=== PATIENT | female | born 1935 | race Caucasian/White ===

== ENCOUNTER → 2018-11-09 | Outpatient (CLI) | payer MEDICARE, BC ==
--- NOTE | 2018-11-09 09:48 | XR ---
EXAMINATION TYPE: XR chest 2V DATE OF EXAM: 11/09/2018 COMPARISON: NONE HISTORY: Shortness of breath TECHNIQUE: Frontal and lateral views of the chest are obtained. FINDINGS: Scattered senescent parenchymal changes noted. Hyperinflation compatible with COPD. No evidence for infiltrate. No evidence for atelectasis. Heart size is stable. Mediastinal structures are stable and grossly unremarkable. No evidence for hilar prominence. Degenerative changes dorsal spine. IMPRESSION: 1. No evidence for acute pulmonary disease.
== END | disposition home or self-care (01) ==
LOC: RADXRMAIN 08:52
PROVIDERS: ATTEND Internal Medicine
DX: R05 Cough (principal)
CPT/HCPCS: 71046

== ENCOUNTER 2019-09-16 23:26 | Observation (INO) | payer MEDICARE, BC ==
[2019-09-17 00:29] LABS: Anisocytosis Slight; Basophils % (A) 0 %; Eosinophils % (A) 0 %; HCT 28.4 % (34.0-46.0); HGB 8.8 gm/dL (11.4-16.0); Hypochromasia Slight; Lymphocytes # (A) 2.1 k/uL (1.0-4.8); Lymphocytes % (A) 30 %; MCH 26.8 pg (25.0-35.0); MCHC 30.9 g/dL (31.0-37.0); MCV 86.6 fL (80.0-100.0); Mean Platelet Volume 12.7; Monocytes # (A) 0.3 k/uL (0-1.0); Monocytes % (A) 5 %; Neutrophils # (A) 4.3 k/uL (1.3-7.7); Neutrophils % (A) 60 %; Platelet Count 57 k/uL (150-450); Poikilocytosis Slight; RBC 3.28 m/uL (3.80-5.40); RDW 17.6 % (11.5-15.5); WBC 7.1 k/uL (3.8-10.6)
[2019-09-17 00:33] LABS: Albumin 3.1 g/dL (3.5-5.0); Calcium 8.5 mg/dL (8.4-10.2); Magnesium 1.8 mg/dL (1.6-2.3); Potassium 3.2 mmol/L (3.5-5.1); Total Bilirubin 0.6 mg/dL (0.2-1.3); Total Protein 5.9 g/dL (6.3-8.2)
--- NOTE | 2019-09-17 00:36 | ED ---
Recheck HPI - General Chief Complaint: Recheck/Abnormal Lab/Rx Stated Complaint: abnormal labs Time Seen by Provider: 09/16/19 23:28 Source: EMS Mode of arrival: EMS Limitations: no limitations - History of Present Illness Initial Comments: Ariane is an 84-year-old female presents to ER today from [facility] for evaluation of newly identified thrombocytopenia and anemia. Patient is currently been undergoing evaluation of a lung mass and recently was diagnosed with what she says is a uncurable lung disease however staff at the nursing facility reported that she has terminal lung cancer. Patient reports that over the past week she's noticed bruising of her legs and has had generalized weakness. Physician at her facility ordered labs and CBC resulted with new onset of anemia and thrombocytopenia of unknown etiology. Patient is also noted to be per family hypokalemic with potassium of only 2.9 earlier. At that time patient was transferred to our facility for further evaluation. Patient does admit to feeling pain at her recent biopsy site as well as generalized malaise. Review of Systems ROS Statement: Those systems with pertinent positive or pertinent negative responses have been documented in the HPI. ROS Other: All systems not noted in ROS Statement are negative. Past Medical History Additional Past Medical History / Comment(s): afib, lung cx. History of Any Multi-Drug Resistant Organisms: None Reported Additional Past Surgical History / Comment(s): pacemaker Past Psychological History: No Psychological Hx Reported Smoking Status: Never smoker Past Alcohol Use History: None Reported Past Drug Use History: None Reported General Exam - General Exam Comments Initial Comments: Physical Exam GENERAL: Elderly chronically ill-appearing female HENT: Normocephalic, Atraumatic. EYES: PERRL, EOMI Conjunctival pallor PULMONARY: Unlabored respirations. Crackles on right CARDIOVASCULAR: There is a regular rate and rhythm without any murmurs gallops or rubs. ABDOMEN: Soft and nontender with normal bowel sounds. SKIN: Petechia thighs, bruising on bilateral calves Senile purpura noted on bilateral upper extremities Patient is pale : Deferred NEUROLOGIC: Patient is alert and oriented x3. Moving all extremities spontaneously MUSCULOSKELETAL: Normal extremities with adequate strength and full range of motion. No lower extremity swelling or edema. No calf tenderness. PSYCHIATRIC: Appropriate situational depression Limitations: no limitations Course Vital Signs 09/16/19 23:35 Temperature 98.6 F Pulse Rate 66 Respiratory 18 Rate Blood Pressure 147/75 O2 Sat by Pulse 96 Oximetry Medical Decision Making - Medical Decision Making The patient was seen and evaluated history is obtained from the patient and review of medical record History and physical exam concerning for anemia Nuance of thrombus cytopenia Repeat labs confirmed anemia with thrombocytopenia Patient will be admitted for further evaluation by oncology - Lab Data Result diagrams: 09/17/19 00:03 09/17/19 00:03 Lab Results 09/17/19 09/17/19 09/17/19 Range/Units 00:01 00:03 00:03 WBC 7.1 (3.8-10.6) k/uL RBC 3.28 L (3.80-5.40) m/uL Hgb 8.8 L (11.4-16.0) gm/dL Hct 28.4 L (34.0-46.0) % MCV 86.6 (80.0-100.0) fL MCH 26.8 (25.0-35.0) pg MCHC 30.9 L (31.0-37.0) g/dL RDW 17.6 H (11.5-15.5) % Plt Count 57 L (150-450) k/uL Neutrophils % 60 % Lymphocytes % 30 % Monocytes % 5 % Eosinophils % 0 % Basophils % 0 % Neutrophils # 4.3 (1.3-7.7) k/uL Lymphocytes # 2.1 (1.0-4.8) k/uL Monocytes # 0.3 (0-1.0) k/uL Eosinophils # 0.0 (0-0.7) k/uL Basophils # 0.0 (0-0.2) k/uL Manual Slide Review Performed Large Platelets Present Polychromasia Present Hypochromasia Slight Poikilocytosis Slight Anisocytosis Slight Sodium (137-145) mmol/L Potassium (3.5-5.1) mmol/L Chloride (98-107) mmol/L Carbon Dioxide (22-30) mmol/L Anion Gap mmol/L BUN (7-17) mg/dL Creatinine (0.52-1.04) mg/dL Est GFR (CKD-EPI)AfAm (>60 ml/min/1.73 sqM) Est GFR (CKD-EPI)NonAf (>60 ml/min/1.73 sqM) Glucose (74-99) mg/dL Calcium (8.4-10.2) mg/dL Magnesium (1.6-2.3) mg/dL Total Bilirubin (0.2-1.3) mg/dL AST (14-36) U/L ALT (4-34) U/L Alkaline Phosphatase (38-126) U/L Total Protein (6.3-8.2) g/dL Albumin (3.5-5.0) g/dL Blood Type O Positive Blood Type Confirm O Positive Blood Type Recheck No Previous Record Bld Type Recheck Status CABO Indicated Antibody Screen NEGATIVE Spec Expiration Date 09/20/2019 - 230209/17/19 Range/Units 00:03 WBC (3.8-10.6) k/uL RBC (3.80-5.40) m/uL Hgb (11.4-16.0) gm/dL Hct (34.0-46.0) % MCV (80.0-100.0) fL MCH (25.0-35.0) pg MCHC (31.0-37.0) g/dL RDW (11.5-15.5) % Plt Count (150-450) k/uL Neutrophils % % Lymphocytes % % Monocytes % % Eosinophils % % Basophils % % Neutrophils # (1.3-7.7) k/uL Lymphocytes # (1.0-4.8) k/uL Monocytes # (0-1.0) k/uL Eosinophils # (0-0.7) k/uL Basophils # (0-0.2) k/uL Manual Slide Review Large Platelets Polychromasia Hypochromasia Poikilocytosis Anisocytosis Sodium 141 (137-145) mmol/L Potassium 3.2 L (3.5-5.1) mmol/L Chloride 106 (98-107) mmol/L Carbon Dioxide 27 (22-30) mmol/L Anion Gap 8 mmol/L BUN 31 H (7-17) mg/dL Creatinine 1.21 H (0.52-1.04) mg/dL Est GFR (CKD-EPI)AfAm 48 (>60 ml/min/1.73 sqM) Est GFR (CKD-EPI)NonAf 42 (>60 ml/min/1.73 sqM) Glucose 111 H (74-99) mg/dL Calcium 8.5 (8.4-10.2) mg/dL Magnesium 1.8 (1.6-2.3) mg/dL Total Bilirubin 0.6 (0.2-1.3) mg/dL AST 27 (14-36) U/L ALT 18 (4-34) U/L Alkaline Phosphatase 97 (38-126) U/L Total Protein 5.9 L (6.3-8.2) g/dL Albumin 3.1 L (3.5-5.0) g/dL Blood Type Blood Type Confirm Blood Type Recheck Bld Type Recheck Status Antibody Screen Spec Expiration Date Disposition Clinical Impression: Hypokalemia, Thrombocytopenia, Anemia Disposition: ADMITTED IP TO THIS [facility] Condition: Serious Is patient prescribed a controlled substance at d/c from ED?: No Referrals: David Cheng MD [Primary Care Provider] - 1-2 days
[2019-09-17 01:15] LABS: Large Platelets Present; Polychromasia Present
[2019-09-17] MEDS ORDERED: Potassium Replacement Protocol 1 EACH MISC MISCELLANE PRN (02:34)
[2019-09-17] MEDS ORDERED: NALOXONE 0.4 MG/ML 1 ML VIAL IV PRN (02:34)
[2019-09-17] MEDS: POTASSIUM CHLORIDE ER 20 MEQ TAB.ER PO SCH ×2 (03:46→04:49)
[2019-09-17 10:29] LABS: Partial Thromboplastin Time 23.5 sec (22.0-30.0); Prothrombin Time 19.8 sec (9.0-12.0)
[2019-09-17 16:06] LABS: Albumin 2.9 g/dL (3.5-5.0); Anisocytosis Slight; Basophils % (A) 0 %; Calcium 8.6 mg/dL (8.4-10.2); Eosinophils # (A) 0.1 k/uL (0-0.7); Eosinophils % (A) 1 %; HCT 28.9 % (34.0-46.0); HGB 9.1 gm/dL (11.4-16.0); Hypochromasia Slight; Lymphocytes # (A) 1.8 k/uL (1.0-4.8); Lymphocytes % (A) 28 %; MCH 27.5 pg (25.0-35.0); MCHC 31.4 g/dL (31.0-37.0); MCV 87.6 fL (80.0-100.0); Monocytes # (A) 0.2 k/uL (0-1.0); Monocytes % (A) 4 %; Neutrophils # (A) 4.2 k/uL (1.3-7.7); Neutrophils % (A) 65 %; Poikilocytosis Slight; Potassium 3.5 mmol/L (3.5-5.1); RDW 17.9 % (11.5-15.5); Total Bilirubin 0.7 mg/dL (0.2-1.3); Total Protein 5.7 g/dL (6.3-8.2); WBC 6.4 k/uL (3.8-10.6)
[2019-09-17 17:13] LABS: Platelet Count 68 k/uL (150-450)
[2019-09-17] MEDS ORDERED: NA PHOS,M-B/NA PHOS,DI-BA 133 ML ENEMA RECTAL PRN (18:20)
[2019-09-17] MEDS ORDERED: MAGNESIUM HYDROXIDE 2,400 MG/10 ML CUP PO PRN (18:20)
[2019-09-17] MEDS ORDERED: ACETAMINOPHEN TAB 325 MG TAB PO PRN (18:20)
[2019-09-17] MEDS ORDERED: BENZOCAINE 20% HEMORRHOIDAL OINT 28GM RECTAL PRN (18:20)
[2019-09-17] MEDS ORDERED: BISACODYL 10 MG SUPP RECTAL PRN (18:20)
[2019-09-17] MEDS ORDERED: ALPRAZolam 0.25 MG TAB PO PRN (18:22)
[2019-09-17] MEDS ORDERED: POTASSIUM CHLORIDE ER 20 MEQ TAB.ER PO SCH (18:30)
[2019-09-17 18:32] LABS: % Iron Saturation 2.19 (12.00-45.00)
--- NOTE | 2019-09-17 18:38 | XR ---
EXAMINATION TYPE: XR chest 1V portable DATE OF EXAM: 09/17/2019 COMPARISON: NONE HISTORY: 11/09/2018 TECHNIQUE: Single view FINDINGS: There is some airspace infiltrate and pleural fluid in the right lower lobe. Heart is enlar ged. There is a left axillary pacemaker. There is no heart failure. Left lung is clear. IMPRESSION: There is right lower lobe pneumonia and right pleural fluid that appears new compared to old exam. No heart failure seen.
--- NOTE | 2019-09-17 19:38 | P.CONS ---
History of Present Illness - Reason for Consult Consult date: 09/17/19 bicytopenia Requesting physician: Kayley Duarte - Chief Complaint abnormal lab - History of Present Illness Mrs. Ruth is a very pleasant 84-year-old female patient sent from [facility] that she was staying at for rehabilitation due to recent frequent hospitalizations. Recently had pneumonia, had lung biopsy, with a diagnosis of lung "disease". Patient and her both confirm that she was not diagnosed with cancer but, they could not remember the name of the disease. The specimen was sent to [facility] from [facility]. Patient denied any fevers, chills, illness other then the pneumonia, no unusual weight loss, shortness of breath, cough, difficulty breathing, ear nose or throat pain, acute changes in oral intake, abdominal pain, acute changes in bowel or bladder habits. She has never been told she has had low counts before.Patient feels well, is not sure why she is here. Review of Systems 14 point review of systems is negative except as stated in HPI Past Medical History Past Medical History: Atrial Fibrillation, Blood Disorder, Heart Failure, COPD, GERD/Reflux, Osteoarthritis (OA), Pneumonia, Renal Disease, Respiratory Disorder, Thyroid Disorder Additional Past Medical History / Comment(s): Newly identified thrombocytopenia and anemia, hypokalemia, recent diagnosis of "incurable lung disease" per pt, SOB with any exertion, interstitial lung disease, pulmonary HTN, arthritis bilateral knees, spinal stenosis/occasional low back pain, SSS with pacer, hypothyroid, IBS, DKD stage III, stress urine incontinence. History of Any Multi-Drug Resistant Organisms: None Reported Past Surgical History: Appendectomy, Cholecystectomy, Hysterectomy, Joint Replacement, Pacemaker, Tubal Ligation, Uterine Ablation Additional Past Surgical History / Comment(s): R lung surgery/bx with chest tube, colonoscopies, total R knee arthroplasty, D&Cs, bilateral cataract removals/lens implants. Past Anesthesia/Blood Transfusion Reactions: No Reported Reaction Additional Past Anesthesia/Blood Transfusion Reaction / Comm: Pt has received blood in past without reaction. Type of Cardiac Device: Permanent Pacemaker Device Placement Date:: 2015 Smoking Status: Never smoker - Past Family History Father Family Medical History: Cancer Additional Family Medical History / Comment(s): Father of stomach cancer. Mother Family Medical History: No Reported History Additional Family Medical History / Comment(s): Mother is . Medications and Allergies Home Medications Medication Instructions Recorded Confirmed Type Acetaminophen Tab [Tylenol] 650 mg PO Q6H PRN 09/17/19 09/17/19 History Aspirin 81 mg PO DAILY 09/17/19 09/17/19 History Atorvastatin [Lipitor] 10 mg PO HS 09/17/19 09/17/19 History Bisacodyl [Dulcolax] 10 mg RECTAL DAILY PRN 09/17/19 09/17/19 History Cholecalciferol [Vitamin D3 (25 1,000 unit PO DAILY 09/17/19 09/17/19 History Mcg = 1000 Iu)] Digoxin [Lanoxin] 125 mcg PO DAILY@0600 09/17/19 09/17/19 History Diltiazem HCl [Cardizem LA] 180 mg PO DAILY 09/17/19 09/17/19 History Furosemide [Lasix] 20 mg PO DAILY 09/17/19 09/17/19 History Levothyroxine Sodium [Levoxyl] 88 mcg PO DAILY@0600 09/17/19 09/17/19 History Losartan [Cozaar] 50 mg PO DAILY 09/17/19 09/17/19 History Magnesium Hydroxide [Milk of 2,400 mg PO DAILY PRN 09/17/19 09/17/19 History Magnesia] Metoprolol Tartrate [Lopressor] 50 mg PO BID 09/17/19 09/17/19 History Na Phos,M-B/Na Phos,Di-Ba [Fleet 133 ml RECTAL DAILY PRN 09/17/19 09/17/19 History Adult] Pantoprazole Sodium [Protonix] 40 mg PO DAILY@0600 09/17/19 09/17/19 History Phenyleph/Pramoxin/Glycr/W.pet 1 applic RECTAL QID PRN 09/17/19 09/17/19 History [Preparation H Cream] Potassium Chloride [Klor-Con 10] 10 meq PO DAILY@1700 09/17/19 09/17/19 History Potassium Chloride [Klor-Con 20] 20 meq PO DIRECTED 09/17/19 09/17/19 History Sertraline [Zoloft] 150 mg PO DAILY 09/17/19 09/17/19 History Umeclidinium Brm/Vilanterol Tr 1 puff INHALATION DAILY 09/17/19 09/17/19 History [Anoro Ellipta 62.5-25 Mcg INH] Warfarin [Coumadin] 2.5 mg PO DAILY@1700 09/17/19 09/17/19 History predniSONE [Deltasone] 20 mg PO DAILY 09/17/19 09/17/19 History Allergies Allergy/AdvReac Type Severity Reaction Status Date / Time codeine AdvReac Nausea/Dizz Verified 09/17/19 07:14 iness Physical Exam Vitals: Vital Signs Temp Pulse Pulse Resp BP BP Pulse Ox 09/17/19 17:45 97.6 F 87 17 178/72 96 09/17/19 13:00 98.2 F 79 16 150/72 93 L 09/17/19 08:32 97.5 F L 76 165/66 09/17/19 05:34 97.8 F 73 19 139/74 99 09/17/19 04:51 71 18 118/70 99 09/17/19 02:38 70 18 136/64 98 09/17/19 01:38 68 18 135/63 97 09/17/19 00:38 70 18 129/66 98 09/16/19 23:35 98.6 F 66 18 147/75 96 Intake and Output 09/17/19 09/17/19 09/17/19 06:59 14:59 22:59 Other: # Voids 1 Weight 90.718 kg 90.718 kg - Constitutional General appearance: cooperative, morbidly obese, no acute distress - EENT Eyes: anicteric sclerae, EOMI ENT: hearing grossly normal, normal oropharynx - Neck Neck: no lymphadenopathy - Respiratory Respiratory: bilateral: CTA - Cardiovascular Rhythm: regular Heart sounds: normal: S1, S2 Abnormal Heart Sounds: no systolic murmur, no diastolic murmur, no rub, no S3 Gallop, no S4 Gallop, no click, no other leg Peripheral Edema: bilateral: None - Gastrointestinal General gastrointestinal: no absent bowel sounds, no decreased bowel sounds, no distended, no hepatomegaly, no hyperactive bowel sounds, normal bowel sounds, no organomegaly, no rigid, no scaphoid, soft, no splenomegaly, no tenderness, no umbilical hernia, no ventral hernia - Integumentary Bruises noted on the bilateral lower extremities, petechiae on the shins Integumentary: pale - Neurologic Neurologic: CNII-XII intact - Musculoskeletal Musculoskeletal: generalized weakness - Psychiatric Psychiatric: A&O x's 3, appropriate affect, intact judgment & insight Results CBC & Chem 7: 09/17/19 15:32 09/17/19 15:32 Labs: Abnormal Lab Results - Last 24 Hours (Table) 09/17/19 09/17/19 09/17/19 Range/Units 00:03 00:03 09:23 RBC 3.28 L (3.80-5.40) m/uL Hgb 8.8 L (11.4-16.0) gm/dL Hct 28.4 L (34.0-46.0) % MCHC 30.9 L (31.0-37.0) g/dL RDW 17.6 H (11.5-15.5) % Plt Count 57 L (150-450) k/uL PT (9.0-12.0) sec INR (<1.2) Potassium 3.2 L (3.5-5.1) mmol/L BUN 31 H (7-17) mg/dL Creatinine 1.21 H (0.52-1.04) mg/dL Glucose 111 H (74-99) mg/dL Iron 7 L (50-170) ug/dL % Saturation 2.19 L (12.00-45.00) Lactate Dehydrogenase (313-618) U/L Total Protein 5.9 L (6.3-8.2) g/dL Total Protein (PEP) (6.2-8.2) g/dL Albumin 3.1 L (3.5-5.0) g/dL 09/17/19 09/17/19 09/17/19 Range/Units 09:23 09:23 09:23 RBC (3.80-5.40) m/uL Hgb (11.4-16.0) gm/dL Hct (34.0-46.0) % MCHC (31.0-37.0) g/dL RDW (11.5-15.5) % Plt Count (150-450) k/uL PT 19.8 H (9.0-12.0) sec INR 2.0 H (<1.2) Potassium (3.5-5.1) mmol/L BUN (7-17) mg/dL Creatinine (0.52-1.04) mg/dL Glucose (74-99) mg/dL Iron (50-170) ug/dL % Saturation (12.00-45.00) Lactate Dehydrogenase 1018 H (313-618) U/L Total Protein (6.3-8.2) g/dL Total Protein (PEP) 5.0 L (6.2-8.2) g/dL Albumin (3.5-5.0) g/dL 09/17/19 09/17/19 Range/Units 15:32 15:32 RBC 3.30 L (3.80-5.40) m/uL Hgb 9.1 L (11.4-16.0) gm/dL Hct 28.9 L (34.0-46.0) % MCHC (31.0-37.0) g/dL RDW 17.9 H (11.5-15.5) % Plt Count 68 L (150-450) k/uL PT (9.0-12.0) sec INR (<1.2) Potassium (3.5-5.1) mmol/L BUN 27 H (7-17) mg/dL Creatinine (0.52-1.04) mg/dL Glucose 108 H (74-99) mg/dL Iron (50-170) ug/dL % Saturation (12.00-45.00) Lactate Dehydrogenase (313-618) U/L Total Protein 5.7 L (6.3-8.2) g/dL Total Protein (PEP) (6.2-8.2) g/dL Albumin 2.9 L (3.5-5.0) g/dL Chest x-ray: report reviewed (right lower lobe pneumonia, pleural effusion) Assessment and Plan (1) Anemia Current Visit: Yes Status: Acute Priority: High Code(s): D64.9 - ANEMIA, UNSPECIFIED SNOMED Code(s): 708047048 (2) Thrombocytopenia Current Visit: Yes Status: Acute Priority: High Code(s): D69.6 - THROMBOCYTOPENIA, UNSPECIFIED SNOMED Code(s): 318779024 Plan: New onset for the patient. No need to for transfusion at this time. CBC daily and when necessary. Pancytopenia workup, hemolysis workup ordered. Patient is on Coumadin for atrial fibrillation, she states her last INR was therapeutic between 2 and 3. This is on hold due to concerns for acute bleeding and acute drop in hemoglobin.
--- NOTE | 2019-09-17 19:53 | HP ---
HISTORY AND PHYSICAL DATE OF SERVICE: 09/17/2019 CHIEF COMPLAINTS: Anemia, thrombocytopenia. HISTORY OF PRESENT ILLNESS: This 84-year-old woman with a past medical history of multiple medical problems, including atrial fibrillation, history of CHF, COPD, GERD, history of DJD, history of pneumonia, history of hypothyroidism, history of apparently incurable lung disease or malignancy, interstitial lung disease, pulmonary hypertension, history of appendectomy, history of cholecystectomy, being followed by Dr. Cheng in the [facility], was noted to have thrombocytopenia and anemia. The patient also had increasing bruises in the legs and the patient were sent to [facility] for further evaluation and treatment. The platelets were found to be 57 68 today and INR is also elevated. The patient is being closely monitored. There is no history of any fever, rigor or chills. No history of headache, loss of consciousness, seizures. PAST MEDICAL HISTORY: History of atrial fibrillation, history of CHF, COPD, GERD, DJD, history of pneumonia, history of interstitial lung disease possibly, history of appendectomy, history of cholecystectomy, history of right lung surgery with chest tube, colonoscopy, arthroscopy, history of anxiety, depression. HOME MEDICATIONS: Reviewed. They include: 1. Phenylephrine application q.i.d. p.r.n. 2. Klor-Con 20 mEq p.o. daily. 3. Milk of Magnesia 2.4 mg p.o. daily p.r.n. 4. Fleets enema 133 mg daily p.r.n. 5. Dulcolax 10 mg p.o. daily p.r.n. 6. Tylenol 650 q.6 p.r.n. 7. Lopressor 50 mg p.o. b.i.d. 8. Vitamin D3 1000 daily. 9. Zoloft 150 mg p.o. daily. 10.Protonix 40 mg p.o. daily. 11.Deltasone 20 mg p.o. daily. 12.Cozaar 50 mg p.o. daily. 13.Lipitor 10 mg at bedtime. 14.Levoxyl 88 mcg p.o. daily. 15.Lasix 20 mg p.o. daily. 16.Lanoxin 125 mcg p.o. daily. 17.Coumadin 2.5 mg p.o. daily. 18.Cardizem 180 mg p.o. daily. 19.Anoro Ellipta 1 puff daily. 20.Aspirin 81 mg daily. ALLERGIES: CODEINE. FAMILY HISTORY: History of cancer, stomach cancer. SOCIAL HISTORY: No history of smoking. No history of alcohol. REVIEW OF SYSTEMS: ENT: Diminished hearing. Diminished vision. CARDIOVASCULAR SYSTEM: As mentioned earlier. RESPIRATORY SYSTEM: As mentioned earlier. GI: No nausea, vomiting. : No dysuria or retention. NERVOUS SYSTEM: As mentioned earlier. ALLERGY/IMMUNOLOGY: No asthma, hayfever. MUSCULOSKELETAL: As mentioned earlier. HEMATOLOGY/ONCOLOGY: As mentioned earlier. ENDOCRINE: Hypothyroidism. CONSTITUTIONAL: As mentioned earlier. DERMATOLOGY: Negative. RHEUMATOLOGY: Negative. PSYCHIATRY: As mentioned earlier. PHYSICAL EXAMINATION: Patient alert and oriented x2. Pulse 87, blood pressure 178/72, respirations 17, temperature 97.6, pulse ox 96% on room air. HEENT: Conjunctivae pale. Oral mucosa moist. NECK: No jugular venous distention. No carotid bruit. No lymph node enlargement. CARDIOVASCULAR SYSTEM: S1, S2 muffled. No S3. No S4. RESPIRATORY SYSTEM: Breath sounds diminished at the bases. A few scattered rhonchi and crackles. ABDOMEN: Soft, obese, non-tender. No mass palpable. LEGS: No edema. No swelling. NERVOUS SYSTEM: Higher functions as mentioned earlier. Moves all 4 limbs. No focal motor or sensory deficit. LYMPHATICS: No lymph node palpable in neck, axillae or groin. SKIN: No ulcer, rash, bleeding. JOINTS: No active deforming arthropathy. LABS: Labs at this time show WBC 7.2, hemoglobin 8.8, platelets 57. INR is 2. Sodium 141, potassium 3.2. Creatinine is 1.21. Albumin is 3.1. ASSESSMENT: 1. New-onset thrombocytopenia, possibly immune-mediated. Rule out bone marrow involvement. 2. Anemia, normocytic. Rule out anemia of chronic disease. 3. Hypokalemia. 4. Increased creatinine with mild acute renal failure, prerenal, acute tubular necrosis. 5. Obesity with body mass index of 33.1. 6. History of atrial fibrillation. 7. History of congestive heart failure. 8. Coumadin monitoring. 9. Chronic obstructive pulmonary disease. 10.Gastroesophageal reflux disease. 11.Degenerative joint disease. 12.History of pneumonia. 13.History of hypothyroidism. 14.History of interstitial lung disease. 15.History of pulmonary hypertension. 16.History of degenerative joint disease. 17.History of spinal stenosis. 18.Rule out lung cancer. 19.History of irritable bowel syndrome. 20.History of diabetic kidney disease, stage III. 21.Stress urinary incontinence. 22.Cholecystectomy. 23.Tubal ligation. 24.Depression. 25.FULL CODE. RECOMMENDATIONS AND DISCUSSION: In this 84-year-old woman who presented with multiple complex medical issues, at this time I recommend to continue the current medications, continue with symptomatic treatment. Hematology/oncology evaluation. Exact etiology of thrombocytopenia is unknown at this time. The patient had significant interstitial disease, per chart, and also has a questionable lung cancer history. Hematology/Oncology has been consulted. They are working up the patient. Chest x-ray will be ordered. Otherwise, we will continue to monitor. Avoid Coumadin and aspirin for now. Continue to monitor. Guarded prognosis because of multiple complex medical issues. Further recommendations to follow. A copy of this dictation is being forwarded to Dr. Cheng, who is the primary physician. MMANTELMOL / SHEMRANN: [id number] /
[2019-09-17] MEDS: METOPROLOL TARTRATE 50 MG TAB PO SCH (20:39)
[2019-09-17] MEDS ORDERED: ATORVASTATIN 10 MG TAB PO SCH (21:00)
[2019-09-18 05:09] VITALS: RESP 20
[2019-09-18] MEDS ORDERED: LEVOTHYROXINE 88 MCG TAB PO SCH (06:00)
[2019-09-18] MEDS ORDERED: PANTOPRAZOLE 40 MG TABLET PO SCH (06:00)
[2019-09-18] MEDS ORDERED: DIGOXIN 125 MCG TAB PO SCH (06:00)
[2019-09-18] MEDS ORDERED: FORMOTEROL FUMARATE 20 MCG/2 ML NEBU INHALATION SCH (08:00)
[2019-09-18] MEDS: IPRATROPIUM 0.5 MG/2.5 ML NEBU INHALATION SCH ×2 (08:23→11:40)
[2019-09-18 08:42] LABS: INR 1.7 (<1.2); Prothrombin Time 16.5 sec (9.0-12.0)
[2019-09-18] MEDS: METOPROLOL TARTRATE 50 MG TAB PO SCH (08:46)
[2019-09-18 08:57] LABS: Calcium 8.4 mg/dL (8.4-10.2); Potassium 3.4 mmol/L (3.5-5.1)
[2019-09-18] MEDS ORDERED: LOSARTAN 50 MG TAB PO SCH (09:00)
[2019-09-18] MEDS ORDERED: CHOLECALCIFEROL 1,000 UNIT TAB PO SCH (09:00)
[2019-09-18] MEDS ORDERED: FUROSEMIDE 20 MG TAB PO SCH (09:00)
[2019-09-18] MEDS ORDERED: predniSONE 20 MG TAB PO SCH (09:00)
[2019-09-18] MEDS ORDERED: SERTRALINE 50 MG TAB PO SCH (09:00)
[2019-09-18] MEDS ORDERED: DILTIAZEM CD 180 MG CAP.ER.24H PO SCH (09:00)
[2019-09-18 09:05] LABS: Anisocytosis Slight; Basophils % (A) 0 %; Eosinophils % (A) 1 %; HCT 28.7 % (34.0-46.0); HGB 9.1 gm/dL (11.4-16.0); Hypochromasia Slight; Lymphocytes # (A) 2.6 k/uL (1.0-4.8); Lymphocytes % (A) 35 %; MCH 27.7 pg (25.0-35.0); MCHC 31.8 g/dL (31.0-37.0); MCV 87.2 fL (80.0-100.0); Mean Platelet Volume 11.1; Monocytes # (A) 0.3 k/uL (0-1.0); Monocytes % (A) 4 %; Neutrophils # (A) 4.2 k/uL (1.3-7.7); Neutrophils % (A) 56 %; Poikilocytosis Slight; RBC 3.29 m/uL (3.80-5.40); RDW 17.9 % (11.5-15.5); WBC 7.5 k/uL (3.8-10.6)
[2019-09-18 09:12] LABS: Platelet Count 83 k/uL (150-450)
[2019-09-18 11:34] VITALS: BP 122/74; PULSE 74; TEMP 98
[2019-09-18 13:40] LABS: Albumin 2.59 g/dL (3.80-4.90); Gamma Globulin 0.85 g/dL (0.70-1.50)
[2019-09-18 16:11] LABS: Reticulocyte % 4.06 % (0.10-1.80)
[2019-09-18] MEDS ORDERED: POTASSIUM CHLORIDE ER 10 MEQ TAB.ER.PRT PO SCH (17:00)
--- NOTE | 2019-09-18 23:19 | P.DS ---
Providers Date of admission: 09/17/19 02:34 Expected date of discharge: 09/18/19 Attending physician: Garry Pinon Consults: 09/17/19 02:35 Consult Physician Urgent Consulting Provider: Octavio Jennings Consult Reason/Comments: thrombocytopenia, anemia recent lung CA diagnosis Do you want consulting provider notified?: Yes, Notify in am Primary care physician: David Cheng [facility] Course: Presenting complaint: Bruising History of presenting complaint: This is a 84[address] Cheng. Chronic stable medical conditions include atypical fibrillation, congestive heart failure, COPD, GERD, [place] arthritis, hypothyroid, interstitial lung disease, secondary probably hypertension, osteoarthritis, irritable bowel syndrome, urinary stress incontinence 6 sinus syndrome with a pacemaker. Patient presented with bruising was found to have anemia and thrombocytopenia. Patient seen by Dr. Dick pugh from hematology. Today-sitting on the bed. Comfortable. No new bruising. Labs have been stable. I communicated with Quiana mann from oncology hematology team. Patient okay to be discharged. They will follow-up with her in the office. This was discussed with the patient. Questions were answered. Discussion and discharge planning more than 35 minutes On examination: 98, 74, 20, 122/74, 93% room air Lungs-decreased breath sounds Dermatological-some bruising Psych-AO - times three. Mood and affect normal INVESTIGATIONS, reviewed in the clinical context: White count 7.5 hemoglobin 9.1 platelets 83 INR 1.7 Potassium 3.4 creatinine 0.87 LDH 693 vitamin B12 391 Free, power light chain elevated at 3.1 Free lambda light change elevated at 4.12 I am 7, percent saturation 2.1 Assessment: -Bicytopenia, cause unclear at this point further workup as an outpatient -Iron deficiency anemia -Medical debility-uses a walker -Chronic urinary stress incontinence -Irritable bowel syndrome -Hypothyroid -6 sinus syndrome with pacemaker -Secondary probably hypertension -Primary osteoarthritis patient of the knees -Spinal stenosis causing low back pain -Interstitial lung disease -GERD -Persistent atrial fibrillation chronically on anticoagulation Plan: Patient will return to the [facility]. Aspirin is being held. Follow-up with Dr. Jennings and repeat labs as an outpatient. Patient Condition at Discharge: Stable Plan - Discharge Summary Discharge Rx Participant: No New Discharge Prescriptions: Continue Potassium Chloride [Klor-Con 20] 20 meq PO DIRECTED Magnesium Hydroxide [Milk of Magnesia] 2,400 mg PO DAILY PRN PRN Reason: Constipation Na Phos,M-B/Na Phos,Di-Ba [Fleet Adult] 133 ml RECTAL DAILY PRN PRN Reason: Constipation Bisacodyl [Dulcolax] 10 mg RECTAL DAILY PRN PRN Reason: Constipation Acetaminophen Tab [Tylenol] 650 mg PO Q6H PRN PRN Reason: general discomfort Metoprolol Tartrate [Lopressor] 50 mg PO BID Cholecalciferol [Vitamin D3 (25 Mcg = 1000 Iu)] 1,000 unit PO DAILY Sertraline [Zoloft] 150 mg PO DAILY Pantoprazole Sodium [Protonix] 40 mg PO DAILY@0600 predniSONE [Deltasone] 20 mg PO DAILY Potassium Chloride [Klor-Con 10] 10 meq PO DAILY@1700 Losartan [Cozaar] 50 mg PO DAILY Atorvastatin [Lipitor] 10 mg PO HS Levothyroxine Sodium [Levoxyl] 88 mcg PO DAILY@0600 Furosemide [Lasix] 20 mg PO DAILY Digoxin [Lanoxin] 125 mcg PO DAILY@0600 Warfarin [Coumadin] 2.5 mg PO DAILY@1700 Diltiazem HCl [Cardizem LA] 180 mg PO DAILY Umeclidinium Brm/Vilanterol Tr [Anoro Ellipta 62.5-25 Mcg INH] 1 puff INHALATION DAILY Phenyleph/Pramoxin/Glycr/W.pet [Preparation H Cream] 1 applic RECTAL QID PRN PRN Reason: Hemorrhoids Discontinued Aspirin 81 mg PO DAILY Discharge Medication List Acetaminophen Tab [Tylenol] 650 mg PO Q6H PRN 09/17/19 [History] Atorvastatin [Lipitor] 10 mg PO HS 09/17/19 [History] Bisacodyl [Dulcolax] 10 mg RECTAL DAILY PRN 09/17/19 [History] Cholecalciferol [Vitamin D3 (25 Mcg = 1000 Iu)] 1,000 unit PO DAILY 09/17/19 [History] Digoxin [Lanoxin] 125 mcg PO DAILY@0600 09/17/19 [History] Diltiazem HCl [Cardizem LA] 180 mg PO DAILY 09/17/19 [History] Furosemide [Lasix] 20 mg PO DAILY 09/17/19 [History] Levothyroxine Sodium [Levoxyl] 88 mcg PO DAILY@0600 09/17/19 [History] Losartan [Cozaar] 50 mg PO DAILY 09/17/19 [History] Magnesium Hydroxide [Milk of Magnesia] 2,400 mg PO DAILY PRN 09/17/19 [History] Metoprolol Tartrate [Lopressor] 50 mg PO BID 09/17/19 [History] Na Phos,M-B/Na Phos,Di-Ba [Fleet Adult] 133 ml RECTAL DAILY PRN 09/17/19 [History] Pantoprazole Sodium [Protonix] 40 mg PO DAILY@0600 09/17/19 [History] Phenyleph/Pramoxin/Glycr/W.pet [Preparation H Cream] 1 applic RECTAL QID PRN [History] Potassium Chloride [Klor-Con 10] 10 meq PO DAILY@17009/17/19 [History] Potassium Chloride [Klor-Con 20] 20 meq PO DIRECTED 09/17/19 [History] Sertraline [Zoloft] 150 mg PO DAILY 09/17/19 [History] Umeclidinium Brm/Vilanterol Tr [Anoro Ellipta 62.5-25 Mcg INH] 1 puff INHALATION DAILY 09/17/19 [History] Warfarin [Coumadin] 2.5 mg PO DAILY@17009/17/19 [History] predniSONE [Deltasone] 20 mg PO DAILY 09/17/19 [History] Follow up Appointment(s)/Referral(s): Octavio Jennings MD [STAFF PHYSICIAN] - 1 Week David Cheng MD [Primary Care Provider] - 1 Week Patient Instructions/Handouts: Anemia (DC), Thrombocytopenia (DC) Activity/Diet/Wound Care/Special Instructions: cbc - next monday/dr jennings Discharge Disposition: TRANSFER TO SNF/ECF
[2019-09-19 08:45] LABS: Methylmalonic Acid 0.31 umol/L (<0.40)
== END 2019-09-18 14:36 ==
LOC: EC 23:26 → 5NMEDONC 09-17 02:34
PROVIDERS: ADMIT Hospitalist; ATTEND Hospitalist
DX: D64.9 Anemia, unspecified (principal); D69.6 Thrombocytopenia, unspecified; E87.6 Hypokalemia; R91.1 Solitary pulmonary nodule; I48.19 Other persistent atrial fibrillation; Z95.0 Presence of cardiac pacemaker; J44.9 Chronic obstructive pulmonary disease, unspecified; K21.9 Gastro-esophageal reflux disease without esophagitis; E03.9 Hypothyroidism, unspecified; N39.3 Stress incontinence (female) (male); I49.5 Sick sinus syndrome; E11.22 Type 2 diabetes mellitus with diabetic chronic kidney disease; N18.3 Chronic kidney disease, stage 3 (moderate); I50.9 Heart failure, unspecified; M17.0 Bilateral primary osteoarthritis of knee; K58.9 Irritable bowel syndrome, unspecified; J84.9 Interstitial pulmonary disease, unspecified; I27.20 Pulmonary hypertension, unspecified; M48.00 Spinal stenosis, site unspecified; F41.9 Anxiety disorder, unspecified; F32.9 Major depressive disorder, single episode, unspecified; E66.01 Morbid (severe) obesity due to excess calories; Z68.33 Body mass index [BMI] 33.0-33.9, adult; Z88.5 Allergy status to narcotic agent; Z79.01 Long term (current) use of anticoagulants; Z79.82 Long term (current) use of aspirin; Z79.899 Other long term (current) drug therapy; Z96.651 Presence of right artificial knee joint; Z90.49 Acquired absence of other specified parts of digestive tract; Z80.0 Family history of malignant neoplasm of digestive organs; Z98.42 Cataract extraction status, left eye; Z98.41 Cataract extraction status, right eye; Z96.1 Presence of intraocular lens
CPT/HCPCS: 99285; 36415; 97161; 86900; 86901; 83921; 82747; 80053; 80048; 82607; 82728; 82164; 83540; 83550; 83615 ×2; 83735; 85025 ×2; 85384; 85610 ×2; 85045; 85730; 86850; 84165; 83010; 87070; 87205; 87075; 87077; 87186; 86334; 83883; 71045; G0378 ×2; J7512; 93005